=== PATIENT | male | born 1985 ===

== ENCOUNTER → 2019-04-15 | Outpatient (REF) ==
--- NOTE | 2019-04-15 16:05 | Diagnostic Imaging Report ---
PROCEDURE: MRI right joint lower extremity without contrast. TECHNIQUE: Multiplanar, multisequence [id number] MRI of the right lower extremity was accomplished. INDICATION: Right knee pain, injury in January 2019. COMPARISON: None. FINDINGS: No acute fracture or dislocation is seen in the right knee. Motion artifact is seen on multiple sequences. Alignment appears normal. There is a moderate right knee joint effusion. The articular cartilage in the patellofemoral compartment demonstrates heterogeneity and surface irregularity. The articular cartilage in the medial compartment demonstrates moderate thinning and surface irregularity. There is also mild thinning seen in the lateral compartment cartilage. There is a predominantly horizontal complex tear of the medial meniscus involving the posterior horn and body, with a fragment which appears to remain attached at the root, but the free component is flipped laterally. The lateral meniscus appears intact. The anterior cruciate ligament appears torn proximally. The posterior cruciate ligament is intact. The medial collateral ligament is intact. There is mild adjacent edema which is likely due to the meniscal pathology. The lateral collateral ligamentous complex is intact. The extensor mechanism is intact. The medial and lateral retinacula are intact. IMPRESSION: 1. Tear of the posterior horn and body of the medial meniscus in the right knee with a fragment flipped laterally. 2. Tear of the proximal anterior cruciate ligament. 3. Moderate right knee joint effusion. Dictated by: Dictated on workstation # [id number]
== END | disposition home or self-care (01) ==
LOC: OCC 14:24
PROVIDERS: ATTEND Family Medicine
CPT/HCPCS: 73721